=== PATIENT | female | born 1945 | race Caucasian/White ===

== ENCOUNTER 2018-07-05 08:31 | Inpatient (IN) | payer MEDICARE | END 2018-07-08 10:49 | disposition home or self-care (01) | LOC: PACU 07-06 07:57 → ER 08:31 → SUR 3N 07-06 12:00 → ED HOLD 12:10 → SUR 3N 13:41 | PROC: 0DN84ZZ Release Small Intestine, Percutaneous Endoscopic Approach (ICD-10-PCS; principal; 2018-07-06 08:00) | DX: K56.609 Unspecified intestinal obstruction, unspecified as to partial versus complete obstruction (principal); N17.9 Acute kidney failure, unspecified; E86.0 Dehydration; E66.01 Morbid (severe) obesity due to excess calories ==

== ENCOUNTER 2022-02-23 09:38 | Day surgery (SDC) | payer MEDICARE ==
[2022-02-15 10:21] LABS: BASOPHILS % (AUTO) 0.7 % (0-1); COLOR,URINE YELLOW (Yellow); EOSINOPHILS # (AUTO) 0.2 X10'3 (0-0.9); EOSINOPHILS % (AUTO) 2.8 % (0-6); GLUCOSE, URINE NEGATIVE (Neg); KETONES,URINE NEGATIVE (Neg); LEUKOCYTE ESTERASE ,URINE NEGATIVE (Neg); LYMPHOCYTES # (AUTO) 1.3 X10'3 (1.1-4.8); LYMPHOCYTES % (AUTO) 22.2 % (21-51); MEAN CORPUSCULAR HEMOGLOBIN 30.4 PG (27.0-31.0); MEAN CORPUSCULAR HGB CONC 33.3 g/dL (33.0-36.5); MEAN CORPUSCULAR VOLUME 91.4 FL (78-98); MEAN PLATELET VOLUME 8.8 FL (7.4-10.4); MONOCYTES # (AUTO) 0.4 X10'3 (0-0.9); MONOCYTES % (AUTO) 6.6 % (2-12); NEUTROPHILS # (AUTO) 4.1 X10'3 (1.8-7.7); NEUTROPHILS % (AUTO) 67.7 % (42-75); NITRITES, URINE NEGATIVE (Neg); OCCULT BLOOD,URINE NEGATIVE (Neg); PRE OP HEMATOCRIT 37.6 % (35.0-45.0); PRE OP HEMOGLOBIN 12.5 g/dL (12.0-16.0); PRE OP PLATELET COUNT 160 X10'3 (140-440); PROTEIN,URINE NEGATIVE (Neg); RED BLOOD COUNT 4.11 X10'6 (4.20-5.60); UROBILINOGEN,URINE 0.2 E.U/dL (0.2-1.0)
[2022-02-15 10:31] LABS: CLARITY,URINE SLIGHTLY CLOUDY (Clear)
[2022-02-15 10:33] LABS: UA COLLECTION TYPE CLN CATCH MIDSTREAM
[2022-02-15 10:34] LABS: SQUAMOUS EPITHELIAL CELL,UR MANY /LPF (FEW)
[2022-02-15 10:35] LABS: BACTERIA,URINE 2+ /HPF (Neg); RBC,URINE 0-2 /HPF (0-2)
[2022-02-15 10:37] LABS: ALBUMIN 3.5 G/DL (3.4-5.0); ALKALINE PHOSPHATASE 74 IU/L (46-116); BLOOD UREA NITROGEN 16 MG/DL (7-18); BUN/CREATININE RATIO 14.7 (6.6-38.0); CHLORIDE 102 MMOL/L (99-107); CREATININE 1.09 MG/DL (0.40-0.90); PRE OP ALT 20 U/L (30-65); PRE OP ANION GAP 5 (8-16); PRE OP AST 18 U/L (10-37); PRE OP BILIRUB, TOTAL 0.6 MG/DL (0.0-1.0); PRE OP GLUCOSE 108 MG/DL (70-104); PRE OP POTASSIUM 4.2 MMOL/L (3.4-5.1); PRE OP SODIUM 138 MMOL/L (135-145); TOTAL CARBON DIOXIDE 30.6 MMOL/L (24-32); TOTAL PROTEIN 6.9 G/DL (6.4-8.2); eGFR 49 ML/MIN
[~2022-02-23] VITALS: Ht 167.6 cm; Wt 115.6 kg
[2022-02-23] VITALS (7 sets, daily range): BP systolic 148–165; BP diastolic 83–90
[~2022-02-23 09:38] MED LIST: ASPI-611 PO; ATOR40TA71 PO; CHOL10008 PO; ENAL20TA75 PO; GARL1000 PO; GLUC-150 PO; IMMUNE PO; LANS15CA18 PO; LEVO75TA7 PO; MULT-1085 PO; OMEG1CAP13 PO; PARO40TA4 PO; SOTA80TA PO; VITA1TAB37 PO
[2022-02-23] MEDS ORDERED: ringers solution, lacted 1,000 ML IV SCH (12:08)
[2022-02-23] MEDS ORDERED: famotidine 20mg tablet PO ONE (12:09)
[2022-02-23] MEDS: ceFAZolin inj. 2,000 MG in dextrose 5%-water 100 ML IV ONE ×2 (12:09→13:09)
[2022-02-23] MEDS ORDERED: bacitracin 15gm ointment TP ONE (12:56)
[2022-02-23] MEDS ORDERED: BUPIVAcaine/PF 2.5 mg/ml (0.25%) 30ml vial ONE (12:56)
[2022-02-23] MEDS ORDERED: MIDAZolam 1 MG/ML 5ML VIAL ONE (13:21)
[2022-02-23] MEDS ORDERED: fentaNYL/PF 50MCG/1 ML 2ML syringe ONE (13:21)
[2022-02-23] MEDS ORDERED: propofol inj 20 ML IV ONE (13:46)
--- NOTE | 2022-02-23 13:50 | NUR ---
Received from OR via [facility], accompanied by Anesthesiologist DR NASH and report given by Anesthesiologist AND EMISSIONS INSPECTOR. PT AWAKE, DENIES PAIN. RIGHT FOOT IN WALKING BOOT W/DRSG UNDERNEATH CDI, TOES PWD, FLOOR COVERING LAYER 1-2 SECONDS. Addendum: 02/23/22 at 1421 by Patria Chappell RN Amended: Links added.
--- NOTE | 2022-02-23 14:50 | NUR ---
D/C INSTRUCTIONS GIVEN AND GONE OVER W/PT WHO VERBALIZED UNDERSTANDING. PT REMAINS COMFORTABLE. PT D/CD TO HOME VIA W/C TO PRIVATE VEHICLE W/O INCIDENT. Addendum: 02/23/22 at 1506 by Patria Chappell RN Amended: Links added.
== END 2022-02-23 14:50 | disposition home or self-care (01) ==
LOC: PAS 09:38
PROVIDERS: ATTEND Podiatrist Foot & Ankle Surgery
DX: M21.629 Bunionette of unspecified foot (principal); M25.471 Effusion, right ankle; I10 Essential (primary) hypertension; F32.9 Major depressive disorder, single episode, unspecified; Z79.899 Other long term (current) drug therapy; Z98.890 Other specified postprocedural states; Z98.49 Cataract extraction status, unspecified eye
CPT/HCPCS: 28110; 36415; 73620; 80053; 81001; 82948; 85025; 87811; 93005; A6222; J0690; J2250; J2704; J3010; J3490; J7030; J7060; J7120; Z7506; Z7512; 76000; A4615; A6449; A7000